=== PATIENT | male | born 1960 | race Caucasian/White ===

== ENCOUNTER 2022-04-28 11:34 | Day surgery (SDC) | payer MEDICAID ==
[2022-04-27 12:41] LABS: COVID AG,FIA SOURCE NASAL SWAB
[~2022-04-28 11:34] MED LIST: AMIO200 PO; ASPI-1522 PO; ATOR-2 PO; CLON0.1T2 PO; DULA0.75 SQ; FOLI-130 PO; FURO20TA4 PO; LOPE2CAP PO; METF-446 PO; METO-416 PO; METO10TA3 PO; MULT-1239 PO; NITR0.4T50 SL; OXYC30TA2 PO; PANT40TA54 PO; SODIUM CHLORIDE 0.9% 1,000 ML ONE; THIA100T92 PO; TICA90TA PO; VALS80TA2 PO
[2022-04-28] MEDS ORDERED: PROPOFOL 1% 20 ML VIAL IVP ONE (11:35)
[2022-04-28] MEDS ORDERED: LIDOCAINE/PF 2% 5 ML SYRINGE IVP ONE (11:35)
[2022-04-28] MEDS ORDERED: SODIUM CHLORIDE 0.9% 1,000 ML IV ONE (12:00)
[2022-04-28 12:16] LABS: GLUCOMETER DEV NAME(LOC) SDS.; GLUCOSE,POINT OF CARE 160 MG/DL (70-110)
== END 2022-04-28 15:00 | disposition home or self-care (01) ==
LOC: SURGERY 11:34
PROVIDERS: ATTEND Internal Medicine Gastroenterology
DX: D12.2 Benign neoplasm of ascending colon (principal); K57.30 Diverticulosis of large intestine without perforation or abscess without bleeding; K29.60 Other gastritis without bleeding; Z95.5 Presence of coronary angioplasty implant and graft; I25.10 Atherosclerotic heart disease of native coronary artery without angina pectoris; E11.9 Type 2 diabetes mellitus without complications; I48.91 Unspecified atrial fibrillation; E78.00 Pure hypercholesterolemia, unspecified; I25.2 Old myocardial infarction; I10 Essential (primary) hypertension; Z79.899 Other long term (current) drug therapy; Z20.822 Contact with and (suspected) exposure to COVID-19; Z79.82 Long term (current) use of aspirin
CPT/HCPCS: 87426; 45385; 43239; 82962; 88305; 93005; C9803; C1769; J2704; J3490; J7030